=== PATIENT | female | born 1955 | race African-American/Black ===

== ENCOUNTER → 2016-07-22 | Outpatient (CLI) | payer OTHER ==
--- NOTE | 2016-07-22 18:22 | WOMENS IMAGING REPORT ---
EXAM DESCRIPTION: BILAT SCREENING MAMMO W/CAD COMPLETED DATE/TIME: 07/22/2016 7:03 am REASON FOR STUDY: Z12.31, ROUTINE SCREENING MAMMO Z12.13 ENCNTR SCREEN FOR MALIGNANT NEOPLASM OF SM ALL INTESTI COMPARISON: Multiple since 2008 TECHNIQUE: Standard craniocaudal and mediolateral oblique views of each breast recorded using Kimeltua l acquisition. LIMITATIONS: None. FINDINGS: Findings present which are benign by mammographic criteria. No suspicious masses, calcifi cations or architectural distortion. Read with the assistance of CAD. .[facility] - R2 Cenova Version 1.3 .[facility] - R2 Cenova Version 1.3 .[facility] - R2 Cenova Version 2.4 .[facility] [place] - R2 Cenova Version 2.4 .[facility] - R2 Piston Maker Version 9.2 Benign mammographic findings may include one or more of the following: Smooth masses, popcorn/rim/co arse calcifications, asymmetries, post-procedure changes, and lesions with long-standing stability. BREAST DENSITY: b. There are scattered areas of fibroglandular density. BIRAD: 2 BENIGN FINDING(S) RECOMMENDATION: ROUTINE SCREENING COMMENT: PATIENT NOTIFIED BY LETTER. The [employer] recommends an annual screening mammogram for women aged 40 years or over. Each patient will receive a reminder prior to the anniversary date of her mammogram. The [employer] (ACR) has developed recommendations for screening MRI of the breast s in certain patient populations, to be used in conjunction with mammography. Breast MRI surveillanc e may be appropriate for women with more than 20% lifetime risk of developing breast cancer as deter mined by genetic testing, significant family history of the disease, or history of mantle radiation f or Hodgkins Disease. ACR Practice Guidelines 2008. TECHNICAL DOCUMENTATION: FINDING NUMBER: (1) ASSESSMENT: (1) JOB ID: [id number] [employer]- All Rights Reserved
== END ==
LOC: WI 06:50
PROVIDERS: ATTEND Internal Medicine
DX: Z12.13 Encounter for screening for malignant neoplasm of small intestine (principal)
CPT/HCPCS: 77067; G0202

== ENCOUNTER → 2016-10-13 | Outpatient (CLI) | payer SELFPAY ==
[2016-10-13 13:56] LABS: ABSOLUTE BASOPHILS # (AUTO) 0.1 10^3/uL (0.0-0.2); ABSOLUTE EOSINOPHILS # (AUTO) 0.1 10^3/uL (0.0-0.6); ABSOLUTE LYMPHOCYTES (AUTO) 1.4 10^3/uL (0.5-4.7); ABSOLUTE MONOCYTES (AUTO) 0.3 10^3/uL (0.1-1.4); ABSOLUTE NEUT (AUTO) 7.2 10^3/uL (1.7-8.2); BASOPHILS % (AUTO) 0.6 % (0-2); EOSINOPHILS % (AUTO) 0.6 % (0-6); HEMATOCRIT 33.7 % (36.0-47.0); HEMOGLOBIN 11.2 g/dL (12.0-15.5); HGB HCT DIFFERENCE -0.1; LYMPHOCYTES % (AUTO) 15.5 % (13-45); MEAN CORPUSCULAR HEMOGLOBIN 28.6 pg (27.0-33.4); MEAN CORPUSCULAR HGB CONC 33.1 g/dL (32.0-36.0); MEAN CORPUSCULAR VOLUME 86 fl (80-97); MONOCYTES % (AUTO) 3.2 % (3-13); RED BLOOD COUNT 3.91 10^6/uL (3.72-5.28); RED CELL DISTRIBUTION WIDTH 14.3 % (11.5-14.0); SEGMENTED NEUTROPHILS % (AUTO) 80.1 % (42-78)
[2016-10-13 14:20] LABS: ALANINE AMINOTRANSFERASE 24 U/L (9-52); ALBUMIN 3.2 g/dL (3.5-5.0); ALKALINE PHOSPHATASE 52 U/L (38-126); ANION GAP 11 (5-19); ASPARTATE AMINO TRANSFERASE 13 U/L (14-36); BILIRUBIN,DIRECT 0.3 mg/dL (0.0-0.4); BILIRUBIN,TOTAL 0.5 mg/dL (0.2-1.3); BLOOD UREA NITROGEN 72 mg/dL (7-20); CALCIUM 8.7 mg/dL (8.4-10.2); CARBON DIOXIDE 30 mmol/L (22-30); CHLORIDE 101 mmol/L (98-107); GLUCOSE 136 mg/dL (75-110); POTASSIUM 4.3 mmol/L (3.6-5.0); SODIUM 141.5 mmol/L (137-145); TOTAL PROTEIN 6.3 g/dL (6.3-8.2)
[2016-10-13 14:46] LABS: THYROID STIMULATING HORMONE 0.73 uIU/mL (0.47-4.68)
== END ==
LOC: OD 12:22
PROVIDERS: ATTEND Internal Medicine
DX: I12.0 Hypertensive chronic kidney disease with stage 5 chronic kidney disease or end stage renal disease (principal); N18.5 Chronic kidney disease, stage 5
CPT/HCPCS: 36415; 80053; 84439; 84443; 85025

== ENCOUNTER → 2016-12-23 | Outpatient (CLI) | payer MEDICAID ==
[2016-12-23 11:12] LABS: ABSOLUTE EOSINOPHILS # (AUTO) 0.1 10^3/uL (0.0-0.6); ABSOLUTE LYMPHOCYTES (AUTO) 2.1 10^3/uL (0.5-4.7); ABSOLUTE MONOCYTES (AUTO) 0.7 10^3/uL (0.1-1.4); ABSOLUTE NEUT (AUTO) 7.1 10^3/uL (1.7-8.2); BASOPHILS % (AUTO) 0.3 % (0-2); HEMATOCRIT 32.5 % (36.0-47.0); HEMOGLOBIN 10.4 g/dL (12.0-15.5); HGB HCT DIFFERENCE -1.3; LYMPHOCYTES % (AUTO) 20.9 % (13-45); MEAN CORPUSCULAR HEMOGLOBIN 27.8 pg (27.0-33.4); MEAN CORPUSCULAR HGB CONC 31.9 g/dL (32.0-36.0); MEAN CORPUSCULAR VOLUME 87 fl (80-97); MONOCYTES % (AUTO) 6.6 % (3-13); RED BLOOD COUNT 3.74 10^6/uL (3.72-5.28); RED CELL DISTRIBUTION WIDTH 13.8 % (11.5-14.0); SEGMENTED NEUTROPHILS % (AUTO) 71.2 % (42-78)
[2016-12-23 11:17] LABS: APPEARANCE,URINE SLIGHTLY-CLOUDY; BILIRUBIN,URINE NEGATIVE (NEGATIVE); GLUCOSE, URINE 150 mg/dL (NEGATIVE); KETONES,URINE NEGATIVE (NEGATIVE); LEUKOCYTE ESTERASE,URINE NEGATIVE (NEGATIVE); NITRITE,URINE NEGATIVE (NEGATIVE); PROTEIN,URINE >=500 mg/dL (NEGATIVE); URINE SPECIFIC GRAVITY 1.012; UROBILINOGEN,URINE NEGATIVE mg/dL (<2.0)
[2016-12-23 11:41] LABS: URINE CREATININE 126.5 mg/dL (15-278)
[2016-12-23 11:50] LABS: ALBUMIN 2.9 g/dL (3.5-5.0); ANION GAP 14 (5-19); BLOOD UREA NITROGEN 68 mg/dL (7-20); CALCIUM 8.3 mg/dL (8.4-10.2); CARBON DIOXIDE 22 mmol/L (22-30); CHLORIDE 105 mmol/L (98-107); CREATININE RESULT 6.06 mg/dL (0.52-1.25); GLUCOSE 213 mg/dL (75-110); PHOSPHORUS 5.7 mg/dL (2.5-4.5); POTASSIUM 3.3 mmol/L (3.6-5.0); SODIUM 140.7 mmol/L (137-145)
[2016-12-23 12:20] LABS: URINE PROTEIN 939.8 mg/dL (<12)
== END ==
LOC: OD 10:18
PROVIDERS: ATTEND Internal Medicine Nephrology
DX: N18.5 Chronic kidney disease, stage 5 (principal); R80.1 Persistent proteinuria, unspecified; D63.1 Anemia in chronic kidney disease
CPT/HCPCS: 36415; 80048; 81001; 82040; 82306; 82570; 83970; 84100; 84156; 85025

== ENCOUNTER → 2017-01-05 | Outpatient (CLI) | payer MEDICAID ==
[2017-01-05 16:30] LABS: ABSOLUTE LYMPHOCYTES (AUTO) 0.9 10^3/uL (0.5-4.7); ABSOLUTE MONOCYTES (AUTO) 0.2 10^3/uL (0.1-1.4); BASOPHILS % (AUTO) 0.6 % (0-2); EOSINOPHILS % (AUTO) 0.3 % (0-6); HEMATOCRIT 34.8 % (36.0-47.0); HEMOGLOBIN 11.1 g/dL (12.0-15.5); HGB HCT DIFFERENCE -1.5; LYMPHOCYTES % (AUTO) 10.9 % (13-45); MEAN CORPUSCULAR VOLUME 87 fl (80-97); MONOCYTES % (AUTO) 2.6 % (3-13); RED BLOOD COUNT 3.98 10^6/uL (3.72-5.28); RED CELL DISTRIBUTION WIDTH 13.4 % (11.5-14.0); SEGMENTED NEUTROPHILS % (AUTO) 85.6 % (42-78); WHITE BLOOD COUNT 8.2 10^3/uL (4.0-10.5)
[2017-01-05 16:46] LABS: ANION GAP 10 (5-19); BLOOD UREA NITROGEN 67 mg/dL (7-20); CALCIUM 8.8 mg/dL (8.4-10.2); CARBON DIOXIDE 27 mmol/L (22-30); CHLORIDE 100 mmol/L (98-107); CREATININE RESULT 6.45 mg/dL (0.52-1.25); GLUCOSE 184 mg/dL (75-110); PHOSPHORUS 6.1 mg/dL (2.5-4.5); POTASSIUM 3.9 mmol/L (3.6-5.0); SODIUM 137.2 mmol/L (137-145)
[2017-01-07 07:42] LABS: HEPATITIS C VIRUS AB <0.1 s/co ratio (0.0-0.9)
== END ==
LOC: OD 14:51
PROVIDERS: ATTEND Internal Medicine Nephrology
DX: N18.5 Chronic kidney disease, stage 5 (principal); D63.1 Anemia in chronic kidney disease; E83.39 Other disorders of phosphorus metabolism
CPT/HCPCS: 36415; 80048; 84100; 85025; 86317; 86704; 86803; 86804; 87340

== ENCOUNTER 2017-02-10 16:51 | Emergency (ER) | payer MEDICAID ==
[2017-02-10 17:02] VITALS: BP 130/74
--- NOTE | 2017-02-10 18:27 | ER Document Report ---
ED General - General Chief Complaint: Dialysis Catheter Problem Stated Complaint: CATHETER PROBLEM Time Seen by Provider: 02/10/17 18:21 Notes: Patient is a dialysis patient on Tuesday, , and Tuesday. She says that her Port-A-Cath in the right upper chest has been hurting her for the past couple of weeks, worse in the past week. She says that on Tuesday the personnel at the dialysis center cleaned up some discharge coming from around the catheter, but she has not noticed any since then. Additionally, the staff at the dialysis center suggested to the patient that the catheter looked like it had been pulled out some. Patient only recalls trying on a dressed in a store on January 15 and catching the address on the Port-A-Cath. She thinks it could have pulled out some then, but that was over 3 weeks ago. Patient has been on pain medication since she had her Port-A-Cath placed but she ran out of her hydrocodone. TRAVEL OUTSIDE OF THE [place] IN LAST 30 DAYS: No - Related Data Allergies/Adverse Reactions: sulfamethoxazole [From ] Allergy (Verified 02/10/17 16:59) trimethoprim [From [place]] Allergy (Verified 02/10/17 16:59) Past Medical History - Social History Smoking Status: Never Smoker Chew tobacco use (# tins/day): No Frequency of alcohol use: None Drug Abuse: None Family History: None, Reviewed & Not Pertinent Patient has suicidal ideation: No Patient has homicidal ideation: No - Past Medical History Cardiac Medical History: Reports: Hx Hypertension Pulmonary Medical History: Reports: Hx Pneumonia Endocrine Medical History: Reports: Hx Diabetes Mellitus Type 2 - Borderline, no medications. Renal/ Medical History: Reports: Hx Renal Insufficiency - Stage IV KKD Musculoskeltal Medical History: Reports Hx Arthritis - Rheumatoid arthritis, Reports Hx Gout - She has had elevated uric acids in the past Psychiatric Medical History: Reports: Hx Depression Past Surgical History: Reports: Hx Tubal Ligation - Immunizations Immunizations up to date: Yes Hx Diphtheria, Pertussis, Tetanus Vaccination: Yes Hx Pneumococcal Vaccination: 07/04/00 Review of Systems - Review of Systems Notes: REVIEW OF SYSTEMS: CONSTITUTIONAL : Denies fever. EENT: Denies eye, ear, nose or mouth or throat pain or other symptoms. CARDIOVASCULAR: Denies chest pain, but see HPI. RESPIRATORY: Denies cough, chest congestion, or shortness of breath. GASTROINTESTINAL: Denies abdominal pain or nausea, vomiting, or diarrhea. GENITOURINARY: Denies difficulty or painful urinating, urinary frequency, blood in urine. MUSCULOSKELETAL: Denies back or neck pain. Denies joint pain or swelling. SKIN: Denies rash or skin lesions. NEUROLOGICAL: Denies LOC or altered mental status. Denies headache. Denies sensory loss or motor deficits. ALL OTHER SYSTEMS REVIEWED AND NEGATIVE. Physical Exam - Vital signs Vitals: Temp Pulse Resp BP Pulse Ox 98.7 F 64 20 130/74 H 100 02/10/17 17:00 02/10/17 17:00 02/10/17 17:00 02/10/17 17:00 02/10/17 17:00 Interpretation: Normal - Notes Notes: PHYSICAL EXAMINATION: GENERAL: Well-appearing, in no acute distress. Afebrile. HEAD: Atraumatic, normocephalic. NECK: Normal range of motion, supple. LUNGS: Breath sounds clear and equal bilaterally. Port-A-Cath in the right upper chest. No drainage or discharge seen from around the catheter entry site. No swelling of the tissue around the Port-A-Cath. No erythema noted. Normal-appearing Port-A-Cath to me. HEART: Regular rate and rhythm without murmurs. ABDOMEN: Soft, nontender. No guarding or rebound. BACK: No tenderness throughout entire back. EXTREMITIES: Normal range of motion without pain. NEUROLOGICAL: Normal speech, normal gait. Normal sensory, motor, and reflex exams. Awake, alert, and oriented x3. Cranial nerves normal. PSYCH: Normal mood, normal affect. SKIN: Warm, dry, no rashes. Course - Re-evaluation Re-evalutation: 02/10/17 21:[address] Pratt, patient's private doctor. Made her aware of the patient's visit in findings. She is going to get blood cultures from the patient's blood when she is dialyzed Tuesday. Okay to discharge the patient home for follow-up as needed for fever, or any signs of infection at the Port-A- Cath site. Patient informed me she was out of her hydrocodone after I had done all of her exam and spoke with Dr. Pratt. I told her I would give her a prescription for a dozen Vicodin tablets, but after that she will have to get her pain medicine from Dr. Pratt. - Vital Signs Vital signs: Temp Pulse Resp BP Pulse Ox 98.7 F 64 20 130/74 H 100 02/10/17 17:00 02/10/17 17:00 02/10/17 17:00 02/10/17 17:00 02/10/17 17:00 Discharge - Discharge Clinical Impression: Port-a-cath in place Condition: Stable Disposition: HOME, SELF-CARE Additional Instructions: Port-A-Cath pain Your Port-A-Cath appears to be working normally. There is no evidence at this time of any infection. In particular, there is no drainage, redness, or swelling present. Only localized tenderness is noted on my examination. I spoke with Dr. Pratt and she is going to get some blood cultures the next time you are dialyzed on Tuesday. She advises for you to return to the emergency department if you are running a fever, having drainage from the Port-A -Cath, swelling of the Port-A-Cath, or redness around the Port-A-Cath. Oral Narcotic Medication You have been given a prescription for pain control. This medication is a narcotic. It's best taken with food, as nausea can result if taken on an empty stomach. Don't operate machinery or drive within six hours of taking this medication. Do not combine this medicine with alcohol, or with any medication which can cause sedation (such as cold tablets or sleeping pills) unless you get permission from the physician. Narcotics tend to cause constipation. If possible, drink plenty of fluids and eat a diet high in fiber and fruits. FOLLOW-UP CARE: If you have been referred to a physician for follow-up care, call the physician s office for an appointment as you were instructed or within the next two days. If you experience worsening or a significant change in your symptoms, notify the physician immediately or return to the Emergency Department at any time for re-evaluation. Prescriptions: Hydrocodone/Acetaminophen [[place] 5-325 mg Tablet] 1 tab PO Q4HP PRN #12 tablet PRN Reason: Referrals: MAYELIN PRATT MD [ACTIVE STAFF] - Follow up in 3-5 days
== END 2017-02-10 18:50 | disposition home or self-care (01) ==
LOC: ER 16:51
DX: Z45.2 Encounter for adjustment and management of vascular access device (principal); I12.9 Hypertensive chronic kidney disease with stage 1 through stage 4 chronic kidney disease, or unspecified chronic kidney disease; N18.4 Chronic kidney disease, stage 4 (severe); Z99.2 Dependence on renal dialysis; Z79.899 Other long term (current) drug therapy; Z88.1 Allergy status to other antibiotic agents
CPT/HCPCS: 99283

== ENCOUNTER 2017-02-20 12:16 | Emergency (ER) | payer MEDICAID ==
--- NOTE | 2017-02-20 12:46 | ER Document Report ---
ED General - General Chief Complaint: Dialysis Catheter Problem Stated Complaint: DIALYSIS CATHETER PROBLEM Time Seen by Provider: 02/20/17 12:34 Mode of Arrival: Ambulatory Information source: Patient Notes: 62-year-old female who receives dialysis Saturdays who had dialysis done yesterday presents after her right subclavian dialysis catheter fell out. TRAVEL OUTSIDE OF THE [place] IN LAST 30 DAYS: No - HPI Onset: Just prior to arrival Onset/Duration: Sudden Quality of pain: No pain Severity: None Pain Level: Denies Associated symptoms: None Exacerbated by: Denies Relieved by: Denies Similar symptoms previously: No Recently seen / treated by doctor: No - Related Data Allergies/Adverse Reactions: sulfamethoxazole [From ] Allergy (Verified 02/20/17 12:23) trimethoprim [From [place]] Allergy (Verified 02/20/17 12:23) Past Medical History - Social History Smoking Status: Never Smoker Cigarette use (# per day): No Chew tobacco use (# tins/day): No Smoking Education Provided: No Frequency of alcohol use: Rare Drug Abuse: None Family History: None, Reviewed & Not Pertinent - Past Medical History Cardiac Medical History: Reports: Hx Hypertension Pulmonary Medical History: Reports: Hx Pneumonia Endocrine Medical History: Reports: Hx Diabetes Mellitus Type 2 - Borderline, no medications. Renal/ Medical History: Reports: Hx End Stage Renal Disease, Hx Renal Insufficiency - Stage IV KKD. Denies: Hx Peritoneal Dialysis Musculoskeltal Medical History: Reports Hx Arthritis - Rheumatoid arthritis, Reports Hx Gout - She has had elevated uric acids in the past Psychiatric Medical History: Reports: Hx Depression Past Surgical History: Reports: Hx Tubal Ligation - Immunizations Immunizations up to date: Yes Hx Diphtheria, Pertussis, Tetanus Vaccination: Yes Hx Pneumococcal Vaccination: 07/04/00 Review of Systems - Review of Systems Notes: REVIEW OF SYSTEMS: CONSTITUTIONAL : Denies fever, chills, or sweats. Denies recent illness. EENT: Denies eye, ear, throat, or mouth pain or symptoms. Denies nasal or sinus congestion or discharge. Denies throat, tongue, or mouth swelling or difficulty swallowing. CARDIOVASCULAR: Denies chest pain. Denies palpitations or racing or irregular heart beat. Denies ankle edema. RESPIRATORY: Denies cough, cold, or chest congestion. Denies shortness of breath, difficulty breathing, or wheezing. GASTROINTESTINAL: Denies abdominal pain or distention. Denies nausea, vomiting , or diarrhea. Denies blood in vomitus, stools, or per rectum. Denies black, tarry stools. Denies constipation. GENITOURINARY: Denies difficulty urinating, painful urination, burning, frequency, blood in urine, or discharge. FEMALE GENITOURINARY: Denies vaginal bleeding, heavy or abnormal periods, irregular periods. Denies vaginal discharge or odor. MUSCULOSKELETAL: Denies back or neck pain or stiffness. Denies joint pain or swelling. SKIN: Dialysis catheter fell out, fistula left arm HEMATOLOGIC : Denies easy bruising or bleeding. LYMPHATIC: Denies swollen, enlarged glands. NEUROLOGICAL: Denies confusion or altered mental status. Denies passing out or loss of consciousness. Denies dizziness or lightheadedness. Denies headache. Denies weakness or paralysis or loss of use of either side. Denies problems with gait or speech. Denies sensory loss, numbness, or tingling. Denies seizures. PSYCHIATRIC: Denies anxiety or stress. Denies depression, suicidal ideation, or homicidal ideation. ALL OTHER SYSTEMS REVIEWED AND NEGATIVE. PHYSICAL EXAMINATION: GENERAL: Well-appearing, well-nourished and in no acute distress. HEAD: Atraumatic, normocephalic. EYES: Pupils equal round and reactive to light, extraocular movements intact, conjunctiva are normal. ENT: Nares patent, oropharynx clear without exudates. Moist mucous membranes. NECK: Normal range of motion, supple without lymphadenopathy LUNGS: Breath sounds clear to auscultation bilaterally and equal. No wheezes rales or rhonchi. HEART: Regular rate and rhythm without murmurs ABDOMEN: Soft, nontender, nondistended abdomen. No guarding, no rebound. No masses appreciated. Female : deferred Musculoskeletal: Normal range of motion, no pitting or edema. No cyanosis. NEUROLOGICAL: Cranial nerves grossly intact. Normal speech, normal gait. Normal sensory, motor exams PSYCH: Normal mood, normal affect. SKIN: Fistula noted on mature, [place] [facility] right subclavian Dictation was performed using [employer] voice recognition software Physical Exam - Vital signs Vitals: Temp Pulse Resp BP Pulse Ox 98.5 F 65 18 157/86 H 99 02/20/17 12:23 02/20/17 12:23 02/20/17 12:23 02/20/17 12:23 02/20/17 12:23 Course - Re-evaluation Re-evalutation: 02/20/17 12:46 On-call surgeon notified immediately, patient will be taken to the room and evaluated 02/20/17 13:[address] the line, patient requests to defer, she states she will have her own surgeon at [place] do it, we will place occlusive dressing, there is no bleeding or infection at this time After performing a Medical Screening Examination, I estimate there is LOW risk for OPEN FRACTURE, COMPARTMENT SYNDROME, TENDON RUPTURE, ACUTE NEUROVASCULAR INJURY, or RETAINED FOREIGN BODY, thus I consider the discharge disposition reasonable. Also, there is no evidence or peritonitis, sepsis, or toxicity. I have reevaluated this patient multiple times and no significant life threatening changes are noted. The patient and I have discussed the diagnosis and risks, and we agree with discharging home with close follow-up with the understanding that symptoms and presentations can change. We also discussed returning to the Emergency Department immediately if new or worsening symptoms occur. We have discussed the symptoms which are most concerning (e.g., changing or worsening pain, fever, numbness, weakness, cool or painful digits) that necessitate immediate return. - Vital Signs Vital signs: Temp Pulse Resp BP Pulse Ox 98.5 F 65 16 157/86 H 99 02/20/17 12:23 02/20/17 12:23 02/20/17 12:33 02/20/17 12:23 02/20/17 12:23 Discharge - Discharge Clinical Impression: Dialysis catheter clot or failure Condition: Stable Disposition: HOME, SELF-CARE Additional Instructions: Please return immediately if there is any other concerns follow-up with your surgeon tomorrow for placement of a dialysis catheter
[2017-02-20 13:43] VITALS: BP 139/71
== END 2017-02-20 13:43 | disposition home or self-care (01) ==
LOC: ER 12:16
DX: T82.42XA Displacement of vascular dialysis catheter, initial encounter (principal); Y84.1 Kidney dialysis as the cause of abnormal reaction of the patient, or of later complication, without mention of misadventure at the time of the procedure; I12.0 Hypertensive chronic kidney disease with stage 5 chronic kidney disease or end stage renal disease; N18.6 End stage renal disease; Z99.2 Dependence on renal dialysis; Z88.1 Allergy status to other antibiotic agents
CPT/HCPCS: 99284

== ENCOUNTER 2017-06-25 12:51 | Emergency (ER) | payer MEDICAID ==
[2017-06-25 12:59] VITALS: BP 156/92
[2017-06-25] MEDS ORDERED: PREDNISONE 20 MG TABLET PO ONE (13:51)
[2017-06-25] MEDS ORDERED: COLCHICINE 0.6 MG TABLET PO ONE (13:51)
--- NOTE | 2017-06-25 13:59 | ER Document Report ---
ED Extremity Problem, Lower - General Chief Complaint: Leg Pain Stated Complaint: FOOT PAIN Time Seen by Provider: 06/25/17 13:24 Mode of Arrival: Ambulatory Information source: Patient Notes: 62-year-old female presented to ED for complaint of pain to her right ankle she states she has a history of gout in his ankle and the gout is inflamed right now. She does have some swelling and warmth to the right ankle. She states she has been given colchicine in the past and she needs them right now. She states she went to dialysis today and they told her to come to the urgent care or the ER that they could not treat her gout. TRAVEL OUTSIDE OF THE [place] IN LAST 30 DAYS: No - HPI Patient complains to provider of: Pain, Swelling Location: Ankle Occurred: Yesterday Onset/Duration: Gradual Quality of pain: Sharp, Throbbing Severity: Severe Pain Level: 5 Recent injury: No Associated symptoms: Painful ambulation Exacerbated by: Movement, Walking Relieved by: Nothing - Related Data Allergies/Adverse Reactions: sulfamethoxazole [From [facility]] Allergy (Verified 06/25/17 12:52) trimethoprim [From [facility]] Allergy (Verified 06/25/17 12:52) Past Medical History - General Information source: Patient - Social History Smoking Status: Former Smoker Cigarette use (# per day): No Chew tobacco use (# tins/day): No Smoking Education Provided: No Frequency of alcohol use: None Drug Abuse: None Lives with: Spouse/Significant other Family History: Arthritis, CAD, CVA, DM, Hyperlipidemia, Hypertension, Thyroid Disfunction. denies: COPD, Malignancy Patient has suicidal ideation: No Patient has homicidal ideation: No - Past Medical History Cardiac Medical History: Reports: Hx Hypertension Pulmonary Medical History: Reports: Hx Pneumonia EENT Medical History: Reports: None Neurological Medical History: Reports: None Endocrine Medical History: Reports: Hx Diabetes Mellitus Type 2 - Borderline, no medications. Renal/ Medical History: Reports: Hx End Stage Renal Disease, Hx Renal Insufficiency - Stage IV KKD Malignancy Medical History: Reports: None GI Medical History: Reports: None Musculoskeltal Medical History: Reports Hx Arthritis - Rheumatoid arthritis, Reports Hx Gout - She has had elevated uric acids in the past Skin Medical History: Reports None Psychiatric Medical History: Reports: Hx Depression Traumatic Medical History: Reports: None Infectious Medical History: Reports: None Past Surgical History: Reports: Hx Tubal Ligation, Hx Vascular Surgery - fistula - Immunizations Immunizations up to date: Yes Hx Diphtheria, Pertussis, Tetanus Vaccination: Yes Hx Pneumococcal Vaccination: 07/04/00 Review of Systems - Review of Systems Constitutional: No symptoms reported EENT: No symptoms reported Cardiovascular: No symptoms reported Respiratory: No symptoms reported Gastrointestinal: No symptoms reported Genitourinary: No symptoms reported Female Genitourinary: No symptoms reported Musculoskeletal: Ankle swelling - Right ankle pain and swelling due to gout Skin: No symptoms reported Hematologic/Lymphatic: No symptoms reported Neurological/Psychological: No symptoms reported Physical Exam - Vital signs Vitals: Temp Pulse Resp BP Pulse Ox 98.7 F 104 H 18 156/92 H 100 06/25/17 12:57 06/25/17 12:57 06/25/17 12:57 06/25/17 12:57 06/25/17 12:57 Interpretation: Normal - General General appearance: Appears well, Alert - HEENT Head: Normocephalic, Atraumatic Eyes: Normal Pupils: PERRL - Respiratory Respiratory status: No respiratory distress Chest status: Nontender Breath sounds: Normal Chest palpation: Normal - Cardiovascular Rhythm: Regular Heart sounds: Normal auscultation Murmur: No - Abdominal Inspection: Normal Distension: No distension Bowel sounds: Normal Tenderness: Nontender Organomegaly: No organomegaly - Back Back: Normal, Nontender - Extremities General upper extremity: Normal inspection, Nontender, Normal color, Normal ROM , Normal temperature General lower extremity: Normal inspection, Normal ROM, Normal temperature. No : Garfield's sign Ankle: Tender, Edema - Erythema due to gout to the right ankle. No: Abrasion, Deformity, Ecchymosis, Instability, Laceration, Limited ROM, Positive Christensen' s test, Unable to bear weight - Painful ambulation - Neurological Neuro grossly intact: Yes Cognition: Normal Orientation: AAOx4 Cleopatra Coma Scale Eye Opening: Spontaneous [place]atra Coma Scale Verbal: Oriented [place] Coma Scale Motor: Obeys Commands Cleopatra Coma Scale Total: 15 Speech: Normal Motor strength normal: LUE, RUE, LLE, RLE Sensory: Normal - Psychological Associated symptoms: Normal affect, Normal mood - Skin Skin Temperature: Warm Skin Moisture: Dry Skin Color: Normal Course - Re-evaluation Re-evalutation: 06/25/17 21:18 Patient was treated with colchicine and prednisone and discharged home with the same. Patient to follow-up with [facility] - Vital Signs Vital signs: Temp Pulse Resp BP Pulse Ox 98.7 F 104 H 18 156/92 H 100 06/25/17 12:57 06/25/17 12:57 06/25/17 12:57 06/25/17 12:57 06/25/17 12:57 Discharge - Discharge Clinical Impression: Chronic kidney disease, stage 3 Gout of right ankle Qualifiers: Gout etiology: due to renal impairment Chronicity: chronic Presence of tophus: without tophus Qualified Code(s): M1A.3710 - Chronic gout due to renal impairment, right ankle and foot, without tophus (tophi) HTN (hypertension) Qualifiers: Hypertension type: unspecified Qualified Code(s): I10 - Essential (primary) hypertension Condition: Stable Disposition: HOME, SELF-CARE Additional Instructions: Gout You have been diagnosed as having gout. Gout is a problem caused by an excess of uric acid, a natural chemical found in the body. The cause of this disease is unknown. Gout arthritis occurs when crystals of uric acid form in the joints. The big toe is the most common joint involved, but any joint can become affected. Persons with gout may also form uric acid kidney stones, resulting in flank pain and blood in the urine. Nodules of uric acid may form under the skin. The first step of treatment is to decrease the inflammation in the joint with antiinflammatory medication. Medication to lower the uric acid level in the blood may then be prescribed. This medication should be taken regularly, as any sudden change in dosage may provoke an attack of gout. Some foods, such as red meat, can provoke an attack in some gout sufferers. Call the doctor if new symptoms arise, or if you do not improve. Gout Diet Changing your diet can decrease the uric acid in your blood. High levels of uric acid cause gouty arthritis and uric acid kidney stones. If you have gout , you should avoid meats that are high in purine. Meat products to avoid include liver, kidneys, and brains. In general, poultry is better than red meats. Seafoods to avoid include anchovies, sardines, mccoy, mackerel, and scallops. In addition to limiting purine-rich foods, people with gout should limit protein intake to 10-15% of total calories. Carbohydrate intake should be around 50% of total daily calories. Limit fat intake to 30% of total daily calories. Cholesterol intake should be less than 300 mg/day. Maintain or achieve a healthy body weight. Weight loss should be gradual. Rapid weight loss can actually increase uric acid levels temporarily. Alcohol, especially beer, should be avoided. Get plenty of fluids. This dilutes urinary uric acid, and helps prevent uric acid kidney stones. Drink eight to twelve cups of water daily. Colchicine Colchicine is a medication used in acute attacks of gout arthritis. It's usually very effective at stopping an attack if started within the first day of pain. It can also be used to prevent attacks. Standard treatment for an acute attack is two tablets, then one tablet every one or two hours until the pain subsides. Intestinal symptoms such as nausea, vomiting, or diarrhea are common with colchicine. These side effects become more likely with higher doses of the medicine. When taking colchicine for an acute gout attack, stop taking the pills when intestinal symptoms develop. Call the physician if you develop fever, worsening joint pain, rash, shortness of breath or wheezing, itching, or severe abdominal symptoms. STEROID MEDICATION: You have been given a medicine of the cortisone/steroid class. This medication is used to control inflammation or allergy. It is usually only given for a short period of time, until the acute process subsides. There are usually no side effects from short-term use of cortisone-like medications. Some persons feel an increased sense of well-being and are not sleepy at bedtime. Long-term use of cortisone medications is best avoided, unless required for a severe condition. If your condition does not remit, or relapses after the course of corticosteroid medication, you should consult your physician. FOLLOW-UP CARE: If you have been referred to a physician for follow-up care, call the physician s office for an appointment as you were instructed or within the next two days. If you experience worsening or a significant change in your symptoms, notify the physician immediately or return to the Emergency Department at any time for re-evaluation. Prescriptions: Colchicine [Colchicine 0.6 mg Tablet] 0.6 mg PO ASDIR PRN #5 tablet PRN Reason: Prednisone [Deltasone 10 mg Tablet] 10 mg PO ASDIR PRN #21 tablet PRN Reason: Forms: Elevated Blood Pressure Referrals: SHERYL ORDONEZ MD [Primary Care Provider] - 12/26/17
== END 2017-06-25 14:00 | disposition home or self-care (01) ==
LOC: ER 12:51
DX: I12.9 Hypertensive chronic kidney disease with stage 1 through stage 4 chronic kidney disease, or unspecified chronic kidney disease (principal); M1A.3710 Chronic gout due to renal impairment, right ankle and foot, without tophus (tophi); N18.3 Chronic kidney disease, stage 3 (moderate); Z99.2 Dependence on renal dialysis; M25.571 Pain in right ankle and joints of right foot; Z87.891 Personal history of nicotine dependence; Z88.1 Allergy status to other antibiotic agents
CPT/HCPCS: 99283; J3490

== ENCOUNTER → 2017-07-25 | Outpatient (CLI) | payer MEDICAID ==
--- NOTE | 2017-07-26 17:51 | WOMENS IMAGING REPORT ---
EXAM DESCRIPTION: BILAT SCREENING MAMMO W/CAD COMPLETED DATE/TIME: 07/25/2017 3:29 pm REASON FOR STUDY: ROUTINE SCREENING;Z12.31 Z12.31 ENCNTR SCREEN MAMMOGRAM FOR MALIGNANT NEOPLASM OF MYRIAM COMPARISON: Multiple since 2008 TECHNIQUE: Standard craniocaudal and mediolateral oblique views of each breast recorded using Sellvanaa l acquisition. LIMITATIONS: None. FINDINGS: Findings present which are benign by mammographic criteria. No suspicious masses, calcifi cations or architectural distortion. Pertinent benign findings: Stable right breast nodules. Read with the assistance of CAD. .[facility] - R2 Cenova Version 1.3 .[facility] - R2 Cenova Version 1.3 .[facility] - R2 Cenova Version 2.4 .[facility] [place] Cenova Version 2.4 .[facility] - R2 Single Resource Boss Version 9.2 Benign mammographic findings may include one or more of the following: Smooth masses, popcorn/rim/co arse calcifications, asymmetries, post-procedure changes, and lesions with long-standing stability. IMPRESSION: BENIGN MAMMOGRAPHIC FINDINGS. BIRADS 2 BREAST DENSITY: b. There are scattered areas of fibroglandular density. BIRAD: 2 BENIGN FINDING(S) RECOMMENDATION: ROUTINE SCREENING Please consider bilateral screening tomosynthesis in July 2018 COMMENT: The patient has been notified of the results by letter per MQSA requirements. Additional no tification policies are in place for contacting patient with suspicious or incomplete findings. Quality ID #[id number]: The [employer] recommends an annual screening mammogram for women aged 40 years or over. This facility utilizes a reminder system to ensure that all patients receive reminder letters, and/or direct phone calls for appointments. This includes reminders for routine scr eening mammograms, diagnostic mammograms, or other Breast Imaging Interventions when appropriate. Th is patient will be placed in the appropriate reminder system. The [employer] (ACR) has developed recommendations for screening MRI of the breast s in certain patient populations, to be used in conjunction with mammography. Breast MRI surveillanc e may be appropriate for women with more than 20% lifetime risk of developing breast cancer as deter mined by genetic testing, significant family history of the disease, or history of mantle radiation f or Hodgkins Disease. ACR Practice Guidelines 2008. TECHNICAL DOCUMENTATION: FINDING NUMBER: (1) ASSESSMENT: (1) JOB ID: [id number] [employer]- All Rights Reserved
== END ==
LOC: WI 14:54
PROVIDERS: ATTEND Internal Medicine
DX: Z12.31 Encounter for screening mammogram for malignant neoplasm of breast (principal)
CPT/HCPCS: 77067

== ENCOUNTER → 2018-08-14 | Outpatient (CLI) | payer MEDICAID ==
--- NOTE | 2018-08-14 14:58 | WOMENS IMAGING REPORT ---
EXAM DESCRIPTION: 3D SCREENING MAMMO BILAT COMPLETED DATE/TIME: 08/14/2018 2:37 pm REASON FOR STUDY: Z12.31 SCREENING MAMMO Z12.31 ENCNTR SCREEN MAMMOGRAM FOR MALIGNANT NEOPLASM OF B RE COMPARISON: [id number] TECHNIQUE: Standard craniocaudal and mediolateral oblique views of each breast recorded using digita l acquisition and breast tomosynthesis. LIMITATIONS: None. FINDINGS: No masses, calcifications or architectural distortion. No areas of suspicion. Read with the assistance of CAD. .[facility] - R2 Cenova Version 1.3 .[facility] - R2 Cenova Version 2.1 .[facility] - R2 Cenova Version 2.4 .[facility] [place] [place] R2 Cenova Version 2.4 .[facility] - R2 Burglar Alarm Assembler Version 9.2 IMPRESSION: NORMAL MAMMOGRAM. BIRADS 1. BREAST DENSITY: b. There are scattered areas of fibroglandular density. BIRAD: 1 NEGATIVE RECOMMENDATION: ROUTINE SCREENING COMMENT: The patient has been notified of the results by letter per SA requirements. Additional no tification policies are in place for contacting patient with suspicious or incomplete findings. Quality ID #[id number]: The [employer] recommends an annual screening mammogram for women aged 40 years or over. This facility utilizes a reminder system to ensure that all patients receive reminder letters, and/or direct phone calls for appointments. This includes reminders for routine scr eening mammograms, diagnostic mammograms, or other Breast Imaging Interventions when appropriate. Th is patient will be placed in the appropriate reminder system. The [employer] (ACR) has developed recommendations for screening MRI of the breast s in certain patient populations, to be used in conjunction with mammography. Breast MRI surveillanc e may be appropriate for women with more than 20% lifetime risk of developing breast cancer as deter mined by genetic testing, significant family history of the disease, or history of mantle radiation f or Hodgkins Disease. ACR Practice Guidelines 2008. DBT Technology DBT is a type of tomographic mammography. With conventional mammography, overlapping breast tissue ma y make lesions difficult to detect, even with good compression. DBT uses an x-ray tube that rotates a round the breast, taking images at different angles. These images are then combined to create thin sl ices of the breast that the radiologist can view as a 3D reconstruction. The [employer] unit can perform full-field digital mammograms (2D imaging); or DBT (3D imaging); or both, in a combination mode that quickly performs both the mammogram and the tomosynthesis scan while the breast is still compressed. PQRS 6045F: Fluoroscopic imaging is not utilized for breast tomosynthesis. TECHNICAL DOCUMENTATION: FINDING NUMBER: (1) ASSESSMENT: (1) JOB ID: [id number] [employer]- All Rights Reserved Reading location - IP/workstation name: [email or web address]
== END ==
LOC: WI 14:02
PROVIDERS: ATTEND Internal Medicine
DX: Z12.31 Encounter for screening mammogram for malignant neoplasm of breast (principal)
CPT/HCPCS: 77063; 77067

== ENCOUNTER → 2019-09-10 | Outpatient (CLI) | payer MEDICAID, MEDICARE ==
--- NOTE | 2019-09-11 17:47 | WOMENS IMAGING REPORT ---
EXAM DESCRIPTION: 3D SCREENING MAMMO BILAT COMPLETED DATE/TIME: 09/10/2019 1:54 pm REASON FOR STUDY: Z12.31 ENCOUNTER FOR SCREENING MAMMOGRAM FOR MALIGNANT NEOPLASM OF BREAST Z12.31 ENCNTR SCREEN MAMMOGRAM FOR MALIGNANT NEOPLASM OF MYRIAM COMPARISON: Multiple since 2008 EXAM PARAMETERS: Views: Standard craniocaudal and mediolateral oblique views of each breast recorded using digital acquisition and breast tomosynthesis. Read with the assistance of CAD. .[facility] - R2 Plant Nursery Worker Version 9.2 LIMITATIONS: None. FINDINGS: No suspicious masses, suspicious calcifications or architectural distortion. No areas of c oncern. IMPRESSION: NEGATIVE MAMMOGRAM. BIRADS 1. BREAST DENSITY: b. There are scattered areas of fibroglandular density. BIRAD: ASSESSMENT: 1 NEGATIVE RECOMMENDATION: ROUTINE SCREENING Please continue yearly bilateral screening mammography/tomosynthesis in September 2020 COMMENT: The patient has been notified of the results by letter per MQSA requirements. Additional no tification policies are in place for contacting patient with suspicious or incomplete findings. Quality ID #[id number]: The [employer] recommends an annual screening mammogram for women aged 40 years or over. This facility utilizes a reminder system to ensure that all patients receive reminder letters, and/or direct phone calls for appointments. This includes reminders for routine scr eening mammograms, diagnostic mammograms, or other Breast Imaging Interventions when appropriate. Th is patient will be placed in the appropriate reminder system. TECHNICAL DOCUMENTATION: FINDING NUMBER: (1) ASSESSMENT: (1) JOB ID: [id number] [employer]- All Rights Reserved Reading location - IP/workstation name: [email or web address]
== END ==
LOC: WI 13:45
PROVIDERS: ATTEND Internal Medicine
DX: Z12.31 Encounter for screening mammogram for malignant neoplasm of breast (principal)
CPT/HCPCS: 77063; 77067